=== PATIENT | male | born 1965 | race Caucasian/White ===

== ENCOUNTER 2019-10-15 05:59 | Day surgery (SDC) | payer BC ==
[2019-10-15] MEDS ORDERED: Lactated Ringers 1,000 ML IV SCH (06:30)
[2019-10-15] MEDS ORDERED: DIPRIVAN 200 MG/20 ML IV ONE ×3 (07:37→08:27)
[2019-10-15] MEDS ORDERED: Ketamine HCl 50 MG/ML ONE (07:37)
[2019-10-15] MEDS ORDERED: Lactated Ringers 1,000 ML IV ONE (08:40)
[2019-10-15 09:21] VITALS: O2SAT 94
[2019-10-15 09:25] VITALS: BP 132/81; PULSE 74
--- NOTE | 2019-10-15 10:04 | OP ---
SURGERY DATE: 10/15/19 SURGERY TIME: 804 PREOPERATIVE DIAGNOSIS: 1. SCREENING EXAM. POSTOPERATIVE DIAGNOSIS: 1. MULTIPLE RECTOSIGMOID COLON POLYPS. PROCEDURE: 1. Colonoscopy with hot snare polypectomy and cold forceps biopsies. SURGEON: Dr. Baker. ANESTHESIA: MAC. Medications given by the Anesthesia Department. BRIEF HISTORY: The patient is a 54 y/o WM presenting now for his first screening colonoscopy. He was appraised of the risks of the procedure including the risk of perforation, phlebitis, untoward reaction to medication, bleeding, and missed lesions. The patient verbalized his understanding and desired to have the procedure performed. DESCRIPTION OF PROCEDURE: The patient was given the medications by the Anesthesia Department. He had continuous pulse oximetry, ECG monitoring, intermittent BP monitoring, and end tidal CO2 monitoring during the examination. He was placed in the left lateral decubitus position. A digital rectal examination was performed and revealed normal anal sphincter tone, no masses, and a normal, but prominent prostate. The flexible Olympus pediatric colonoscope was used to intubate the rectum. A view of the colon was developed sequentially to the cecum. Upon insertion and withdrawal, including a retroflex view in the rectum, was noted multiple small polyps in the rectosigmoid area, the largest one measuring 1.5 cm in size. Removed using the hot snare and retrieved for pathologic evaluation. The scope was removed from the patient who tolerated the procedure well and was sent back to OP recovery in good condition. The prep was noted to be fair with adherent mucousy stool in the cecum area, but otherwise was clear.
== END 2019-10-15 09:35 | disposition home or self-care (01) ==
LOC: SDC 05:59
PROVIDERS: ATTEND Family Medicine
DX: Z12.11 Encounter for screening for malignant neoplasm of colon (principal); D12.8 Benign neoplasm of rectum
CPT/HCPCS: 88305; J2704